=== PATIENT | male | born 1955 | race African-American/Black ===

== ENCOUNTER → 2018-12-02 | Outpatient (CLI) | payer OTHER ==
[~2018-12-02] MED LIST: ALBUTEROL SULFATE 2.5 MG/3 ML NEBU. NEB ONE
--- NOTE | 2018-12-02 13:01 | RAD ---
EXAM: Chest, 2 views. HISTORY: COPD. COMPARISON: None. FINDINGS: 2 views of the chest are obtained. There is no infiltrate, pleural effusion or pneumothorax. The heart is normal in size. IMPRESSION: No acute pulmonary finding. Electronically signed by: Adia Tucker MD (12/02/2018 12:57 PM) [place] [id number]
== END | disposition home or self-care (01) ==
LOC: PF 10:58
PROVIDERS: ATTEND Physical Medicine & Rehabilitation
DX: J44.9 Chronic obstructive pulmonary disease, unspecified (principal)
CPT/HCPCS: 71046; 94060; 94640; 94729; J7613